=== PATIENT | male | born 2000 | race African-American/Black ===

== ENCOUNTER 2020-09-30 16:25 | Emergency (ER) | payer SELFPAY ==
[2020-09-30] MEDS ORDERED: Acetaminophen/oxyCODONE 325-5 MG Tab PO STA (17:39)
[2020-09-30] MEDS ORDERED: Ketorolac 60 MG/2 ML SDV IM ONE (17:39)
[2020-09-30] MEDS ORDERED: Cyclobenzaprine 10 MG Tab PO ONE (17:39)
--- NOTE | 2020-09-30 18:02 | CR ---
INDICATION: Left knee injury. LEFT KNEE: Three views of the left knee were obtained 09/30/20 and revealed no evidence of an acute fracture or dislocation. Normal bone density is noted. No hypertrophic changes are seen. There is somewhat prominent appearance of the suprapatellar bursa which could represent a small knee joint effusion - correlate clinically. MTDD
--- NOTE | 2020-09-30 18:04 | EDM.PDOC ---
ED HPI GENERAL MEDICAL PROBLEM - General Chief Complaint: Lower Extremity Injury/Pain Stated Complaint: LEG PAIN Time Seen by Provider: 09/30/20 16:30 Source of Information: Reports: Patient History Limitations: Reports: No Limitations - History of Present Illness INITIAL COMMENTS - FREE TEXT/NARRATIVE: Patient presented to the ED because of left knee pain. He was playing football and twisted his left knee. The pain ias worse over the lateral aspect of the left knee and rate it,9/10. L knee Pain Score (Numeric/FACES): 5 - Related Data Allergies Allergy/AdvReac Type Severity Reaction Status Date / Time guaifenesin [From Robitussin] Allergy Cannot Verified 09/30/20 16:30 Remember Home Meds: Home Meds Acetaminophen/HYDROcodone [[place] 325-5 MG] 1 - 2 tab PO Q6H PRN #10 tab 09/30/20 [Rx] Cyclobenzaprine [Flexeril] 10 mg PO TID PRN #30 tab 09/30/20 [Rx] Ibuprofen 800 mg PO TID #30 tablet 09/30/20 [Rx] Multivitamin [Multi-Day Vitamins] 1 each PO DAILY 09/30/20 [History] Past Medical History Respiratory History: Reports: Asthma Musculoskeletal History: Reports: Fracture Other Musculoskeletal History: hx fx R ribs, Neurological History: Reports: Concussion - Past Surgical History Musculoskeletal Surgical History: Reports: None Social & Family History - Family History Family Medical History: Unobtainable - Tobacco Use Tobacco Use Status *Q: Never Tobacco User - Caffeine Use Caffeine Use: Reports: Soda - Recreational Drug Use Recreational Drug Use: No Review of Systems - Review of Systems Review Of Systems: See Below Constitutional: Reports: No Symptoms Eyes: Reports: No Symptoms Ears: Reports: No Symptoms Nose: Reports: No Symptoms Mouth/Throat: Reports: No Symptoms Respiratory: Reports: No Symptoms Cardiovascular: Reports: No Symptoms GI/Abdominal: Reports: No Symptoms Genitourinary: Reports: No Symptoms Musculoskeletal: Reports: Joint Pain, Joint Swelling Skin: Reports: No Symptoms Neurological: Reports: No Symptoms ED EXAM, GENERAL - Physical Exam Exam: See Below Exam Limited By: No Limitations General Appearance: Alert, No Apparent Distress Eye Exam: Bilateral Eye: PERRL Ears: Normal External Exam, Normal Canal Nose: Normal Inspection, Normal Mucosa, No Blood Throat/Mouth: Normal Inspection, Normal Lips Head: Atraumatic, Normocephalic Neck: Normal Inspection, Supple, Non-Tender Respiratory/Chest: No Respiratory Distress, Lungs Clear, Normal Breath Sounds Cardiovascular: Normal Peripheral Pulses, Regular Rate, Rhythm, No Edema, No Gallop GI/Abdominal: Normal Bowel Sounds, Soft, Non-Tender, No Organomegaly Back Exam: Normal Inspection, Full Range of Motion Extremities: Normal Inspection, Limited Range of Motion, Other (tenderness over the medial and lateral aspect of the left knee) Course - Vital Signs Text/Narrative:: Xray-left knee-negative Toradol 60 mg IM x1 Percocet 5/325, 2 po x1 Flexeril 10 mg PO x1 Crutches and knee brace provided in the ED Last Recorded V/S: Last Vital Signs Temp 36.6 C 09/30/20 16:25 Pulse 74 09/30/20 18:27 Resp 16 09/30/20 18:27 BP 128/77 09/30/20 18:27 Pulse Ox 100 09/30/20 18:27 - Orders/Labs/Meds Meds: Medications Discontinued Medications Generic Name Dose Route Start Last Admin Trade Name Freq PRN Reason Stop Dose Admin Cyclobenzaprine HCl 10 mg 09/30/20 17:39 09/30/20 17:47 Flexeril PO 09/30/20 17:40 10 mg ONETIME ONE Administration Ketorolac Tromethamine 60 mg 09/30/20 17:39 09/30/20 17:47 Toradol IM 09/30/20 17:40 60 mg ONETIME ONE Administration Oxycodone/Acetaminophen 2 tab 09/30/20 17:39 09/30/20 17:47 Percocet 325-5 Mg PO 09/30/20 17:40 2 tab NOW STA Administration Departure - Departure Time of Disposition: 18:00 Disposition: Home, Self-Care 01 Condition: Good Clinical Impression: Knee sprain - Discharge Information Prescriptions: Cyclobenzaprine [Flexeril] 10 mg PO TID PRN #30 tab PRN Reason: Spasms Ibuprofen 800 mg PO TID #30 tablet Acetaminophen/HYDROcodone [[place] 325-5 MG] 1 - 2 tab PO Q6H PRN #10 tab PRN Reason: Pain Instructions: Cyclobenzaprine tablets, Acetaminophen; Oxycodone tablets, Ketorolac injection, Knee Sprain, Adult, [id number] Referrals: PCP,None [Primary Care Provider] - Forms: ED Department Discharge Additional Instructions: Please read discharge instructions on knee sprain Take the following medicines all at the same time for better pain relief Ibuprofen 800 mg, tylenol 1000 mg, flexeril 10 mg every 8 hours as needed for pain and spasm Use your crutches until your knee feels better Follow up with your doctor if your knee still hurts after a week of treatment Sepsis Event Note (ED) - Evaluation Sepsis Screening Result: No Definite Risk
== END 2020-09-30 18:45 | disposition home or self-care (01) ==
LOC: FB.ED 16:25
DX: S83.92XA Sprain of unspecified site of left knee, initial encounter (principal); J45.909 Unspecified asthma, uncomplicated; Z88.8 Allergy status to other drugs, medicaments and biological substances; X50.1XXA Overexertion from prolonged static or awkward postures, initial encounter; Y93.61 Activity, american tackle football
CPT/HCPCS: 73562-LT; 96372; 99283; A9270-GY; J1885

== ENCOUNTER 2020-12-11 22:51 | Emergency (ER) | payer SELFPAY ==
[2020-12-11] MEDS ORDERED: Cephalexin 500 MG Cap PO STA (23:02)
--- NOTE | 2020-12-11 23:26 | EDM.PDOC ---
ED HPI GENERAL MEDICAL PROBLEM - General Chief Complaint: General Stated Complaint: LEFT KNEE RED Time Seen by Provider: 12/11/20 23:10 Source of Information: Reports: Patient History Limitations: Reports: No Limitations - History of Present Illness INITIAL COMMENTS - FREE TEXT/NARRATIVE: Patient is a 20 YO BM who presented to the ED because of redness over the medial aspect of the left leg. He is post op left knee surgery due to a torn ACL 1 week ago at [facility]. There is no fever,chills, or any discharge from the wound. He is taking eliquis and hydrocodone . Left Knee Pain Score (Numeric/FACES): 1 - Related Data Allergies Allergy/AdvReac Type Severity Reaction Status Date / Time guaifenesin [From Robitussin] Allergy Cannot Verified 09/30/20 16:30 Remember Home Meds: Home Meds Acetaminophen/HYDROcodone [[place] 325-5 MG] 1 - 2 tab PO Q6H PRN #10 tab 09/30/20 [Rx] Cyclobenzaprine [Flexeril] 10 mg PO TID PRN #30 tab 09/30/20 [Rx] Ibuprofen 800 mg PO TID #30 tablet 09/30/20 [Rx] Multivitamin [Multi-Day Vitamins] 1 each PO DAILY 09/30/20 [History] Sulfamethoxazole/Trimethoprim [Bactrim Ds Tablet] 1 each PO BID #20 tablet 12/11/20 [Rx] cephALEXin [Keflex] 500 mg PO Q8H #30 cap 12/11/20 [Rx] Past Medical History Respiratory History: Reports: Asthma Musculoskeletal History: Reports: Fracture Other Musculoskeletal History: hx fx R ribs, Neurological History: Reports: Concussion - Past Surgical History Musculoskeletal Surgical History: Reports: None, Arthroscopic Knee, Other (See Below) Other Musculoskeletal Surgeries/Procedures:: ACL,PCL,LCL repair on 12/05/20 Social & Family History - Family History Family Medical History: Unobtainable - Tobacco Use Tobacco Use Status *Q: Never Tobacco User - Caffeine Use Caffeine Use: Reports: Soda - Recreational Drug Use Recreational Drug Use: No ED ROS GENERAL - Review of Systems Review Of Systems: See Below Constitutional: Reports: No Symptoms HEENT: Reports: No Symptoms Respiratory: Reports: No Symptoms Cardiovascular: Reports: No Symptoms Endocrine: Reports: No Symptoms GI/Abdominal: Reports: No Symptoms : Reports: No Symptoms Musculoskeletal: Reports: Joint Pain, Joint Swelling Skin: Reports: Erythema Neurological: Reports: No Symptoms ED EXAM, GENERAL - Physical Exam Exam: See Below Exam Limited By: No Limitations General Appearance: Alert, No Apparent Distress Ears: Normal External Exam, Normal Canal Nose: Normal Inspection, Normal Mucosa Throat/Mouth: Normal Inspection Head: Atraumatic, Normocephalic Neck: Normal Inspection, Supple, Non-Tender, Full Range of Motion Respiratory/Chest: No Respiratory Distress, Lungs Clear, Normal Breath Sounds Cardiovascular: Normal Peripheral Pulses, Regular Rate, Rhythm, No Edema, No Gallop, No JVD, No Murmur, No Rub GI/Abdominal: Normal Bowel Sounds, Soft, Non-Tender, No Organomegaly, No Distention, No Abnormal Bruit Back Exam: Normal Inspection, Full Range of Motion Extremities: Normal Inspection, Normal Range of Motion, Non-Tender Neurological: Alert, Oriented, CN II-XII Intact, Normal Cognition, Normal Gait, Normal Reflexes, No Motor/Sensory Deficits Psychiatric: Normal Affect, Normal Mood Skin Exam: Warm, Erythema Course - Vital Signs Text/Narrative:: Lab results was discussed with patient Keflex 500 mg PPO x1 Bactrim DS 1 PO x1 Rocephin 1gm IM Last Recorded V/S: Last Vital Signs Temp 36.7 C 12/11/20 23:08 Pulse 91 12/11/20 23:08 Resp 18 12/11/20 23:08 BP 150/82 H 12/11/20 23:08 Pulse Ox 100 12/11/20 23:08 - Orders/Labs/Meds Labs: Laboratory Tests 12/11/20 12/11/20 12/11/20 Range/Units 23:20 23:20 23:20 WBC 14.3 H (3.2-10.1) x10-3/uL RBC 4.25 (3.90-5.90) x10(6)uL Hgb 12.6 L (12.9-17.7) g/dL Hct 37.6 L (38.3-50.1) % MCV 88.4 (80.8-98.7) fL MCH 29.7 (27.0-33.3) pg MCHC 33.6 (28.7-35.3) g/dL RDW 12.3 L (12.4-15.0) % Plt Count 287 (117-477) x10(3)uL MPV 8.4 (6.7-11.0) fL Neut % (Auto) 74.4 H (40.3-71.8) % Lymph % (Auto) 10.9 L (15.8-45.3) % Bowman % (Auto) 13.9 (5.5-15.2) % Eos % (Auto) 0.3 (0.1-6.8) % Baso % (Auto) 0.5 (0.3-3.8) % Neut # (Auto) 10.7 H (1.7-6.9) x10-3/uL Lymph # (Auto) 1.6 (0.5-4.5) x10-3/uL Bowman # (Auto) 2.0 H (0.0-1.2) x10-3/uL Eos # (Auto) 0.0 (0.0-0.6) x10-3/uL Baso # (Auto) 0.1 (0.0-0.3) x10-3/uL D-Dimer, Quantitative 2.66 H (0.0-0.59) mg/LFEU C-Reactive Protein 15.3 H* (0.5-0.9) mg/dL Meds: Medications Discontinued Medications Generic Name Dose Route Start Last Admin Trade Name Freq PRN Reason Stop Dose Admin Ceftriaxone Sodium 1 gm 12/12/20 00:01 Rocephin IM 12/12/20 00:02 NOW STA Cephalexin 500 mg 12/11/20 23:02 12/11/20 23:22 Keflex PO 12/11/20 23:03 500 mg NOW STA Administration Trimethoprim/Sulfamethoxazole 1 tab 12/12/20 00:12 Septra Ds PO 12/12/20 00:13 NOW STA Departure - Departure Time of Disposition: 00:30 Disposition: Home, Self-Care 01 Condition: Good Clinical Impression: S/P knee surgery, Cellulitis, Elevated d-dimer - Discharge Information Prescriptions: Sulfamethoxazole/Trimethoprim [Bactrim Ds Tablet] 1 each PO BID #20 tablet cephALEXin [Keflex] 500 mg PO Q8H #30 cap Instructions: Anterior Cruciate Ligament Reconstruction, Care After, Cellulitis, Adult, [id number] Referrals: PCP,None [Primary Care Provider] - Forms: ED Department Discharge Additional Instructions: Please read discharge instructions on knee surgery and cellulitis Continue your pain medications as prescribed Keflex 500 mg 3 times daily for 10 days Bactrim DS 1 PO x 1 We will call you for your lower extremity ultrasound appointment Follow up with your orthopedic doctor as scheduled Sepsis Event Note (ED) - Evaluation Sepsis Screening Result: No Definite Risk - Focused Exam Vital Signs: Vital Signs Temp Pulse Resp BP Pulse Ox 12/11/20 23:08 36.7 C 91 18 150/82 H 100
[2020-12-12] MEDS ORDERED: cefTRIAXone 1 GM Vial IM STA (00:01)
[2020-12-12] MEDS ORDERED: Sulfamethoxazole/Trimethoprim 800-160 MG Tab PO STA (00:12)
== END 2020-12-12 00:47 | disposition home or self-care (01) ==
LOC: FB.ED 22:51
DX: L03.116 Cellulitis of left lower limb (principal); R79.1 Abnormal coagulation profile; J45.909 Unspecified asthma, uncomplicated; Z98.890 Other specified postprocedural states; Z88.8 Allergy status to other drugs, medicaments and biological substances; Z79.899 Other long term (current) drug therapy; Z79.01 Long term (current) use of anticoagulants
CPT/HCPCS: 36415; 85025; 85379; 86140; 96372; 99283; A9270-GY; J0696

== ENCOUNTER 2021-07-17 00:19 | Emergency (ER) | payer MEDICAID ==
[2021-07-17] MEDS ORDERED: Sulfamethoxazole/Trimethoprim 800-160 MG Tab PO STA (00:47)
--- NOTE | 2021-07-17 00:53 | EDM.PDOC ---
ED HPI GENERAL MEDICAL PROBLEM - General Chief Complaint: Genitourinary Problem Stated Complaint: UTI CONCERN Time Seen by Provider: 07/17/21 00:30 Source of Information: Reports: Patient History Limitations: Reports: No Limitations - History of Present Illness INITIAL COMMENTS - FREE TEXT/NARRATIVE: Patient presented to the ED because of dysuria and frequency for 2 days. There is no fever, flank pain, N/V. He took OTC azol and is concerned abou the orange color of his urine. - Related Data Allergies Allergy/AdvReac Type Severity Reaction Status Date / Time guaifenesin [From Robitussin] Allergy Cannot Verified 07/17/21 00:32 Remember Home Meds: Home Meds Sulfamethoxazole/Trimethoprim [Bactrim Ds Tablet] 1 each PO BID #14 tablet 07/17/21 [Rx] Past Medical History Respiratory History: Reports: Asthma Musculoskeletal History: Reports: Fracture Other Musculoskeletal History: hx fx R ribs, Neurological History: Reports: Concussion - Past Surgical History Musculoskeletal Surgical History: Reports: None, Arthroscopic Knee, Other (See Below) Other Musculoskeletal Surgeries/Procedures:: ACL,PCL,LCL repair on 12/05/20 Social & Family History - Family History Family Medical History: Unobtainable - Caffeine Use Caffeine Use: Reports: Soda ED ROS GENERAL - Review of Systems Review Of Systems: See Below Constitutional: Reports: No Symptoms HEENT: Reports: No Symptoms Respiratory: Reports: No Symptoms Cardiovascular: Reports: No Symptoms Endocrine: Reports: No Symptoms GI/Abdominal: Reports: No Symptoms : Reports: Dysuria Musculoskeletal: Reports: No Symptoms Skin: Reports: No Symptoms Neurological: Reports: No Symptoms ED EXAM, RENAL/ - Physical Exam Exam: See Below Exam Limited By: No Limitations General Appearance: Alert, No Apparent Distress Eye Exam: Bilateral Eye: PERRL Ears: Normal External Exam, Normal Canal Nose: Normal Inspection, Normal Mucosa, No Blood Throat/Mouth: Normal Inspection, Normal Lips, Normal Teeth, Normal Gums Head: Atraumatic, Normocephalic Neck: Normal Inspection, Supple, Non-Tender, Full Range of Motion Respiratory/Chest: No Respiratory Distress, Lungs Clear, Normal Breath Sounds, No Accessory Muscle Use, Chest Non-Tender Cardiovascular: Normal Peripheral Pulses, Regular Rate, Rhythm, No Edema, No Gallop, No JVD, No Murmur, No Rub GI/Abdominal: Normal Bowel Sounds, Soft, Non-Tender, No Organomegaly, No Distention, No Abnormal Bruit, No Mass Back Exam: Normal Inspection, Full Range of Motion Extremities: Normal Inspection, Normal Range of Motion, Non-Tender, No Pedal Edema, Normal Capillary Refill Neurological: Alert, Oriented, CN II-XII Intact, Normal Cognition Course - Vital Signs Text/Narrative:: UA-see result UC-pending Bactrim DS 1 PO x1 dose - Orders/Labs/Meds Orders: Active Orders 24 hr Category Date Time Status CULTURE URINE [RM] Stat Lab 07/17/21 00:25 Received Labs: Laboratory Tests 07/17/21 Range/Units 00:25 Urine Color Yellow (YELLOW) Urine Appearance Cloudy (CLEAR) Urine pH 7.0 H (5.0-6.5) Ur Specific [place] 1.010 (1.010-1.025) Urine Protein 500 H (NEGATIVE) mg/dL Urine Glucose (UA) Normal (NORMAL) mg/dL Urine Ketones 15 H (NEGATIVE) mg/dL Urine Occult Blood Moderate H (NEGATIVE) Urine Nitrite Positive H (NEGATIVE) Urine Bilirubin Moderate H (NEGATIVE) Urine Urobilinogen >=12 H (NEGATIVE) mg/dL Ur Leukocyte Esterase Large H (NEGATIVE) Urine RBC 10-20 H (0-5) Urine WBC >100 H (0-5) Ur Squamous Epith Cells Occasional (NS,R,O) Urine Bacteria Moderate H (NS) Meds: Medications Discontinued Medications Generic Name Dose Route Start Last Admin Trade Name Cjq PRN Reason Stop Dose Admin Trimethoprim/Sulfamethoxazole 1 tab 07/17/21 00:47 07/17/21 00:55 Sulfamethoxazole/Trimethoprim 800-160 Mg Tab PO 07/17/21 00:48 1 tab NOW STA Administration Departure - Departure Time of Disposition: 01:00 Disposition: Home, Self-Care 01 Condition: Good Clinical Impression: UTI (urinary tract infection) - Discharge Information Prescriptions: Sulfamethoxazole/Trimethoprim [Bactrim Ds Tablet] 1 each PO BID #14 tablet Instructions: Urinary Tract Infection, Adult, [id number] Referrals: PCP,None [Primary Care Provider] - Forms: ED Department Discharge Additional Instructions: Please read discharge instructions on UTI Drink 2 liters of water daily Bactrim DS twice daily for 7 days Follow up as needed - My Orders Last 24 Hours: My Active Orders 07/17/21 00:25 CULTURE URINE [RM] Stat - Assessment/Plan Last 24 Hours: My Active Orders 07/17/21 00:25 CULTURE URINE [RM] Stat
== END 2021-07-17 01:05 | disposition home or self-care (01) ==
LOC: FB.ED 00:19
DX: N39.0 Urinary tract infection, site not specified (principal); Z88.8 Allergy status to other drugs, medicaments and biological substances
CPT/HCPCS: 81001; 87086; 99283; A9270

== ENCOUNTER 2021-08-05 22:15 | Emergency (ER) | payer MEDICAID, OTHER ==
[2021-08-05] MEDS ORDERED: Doxycycline 100 MG Tab PO ONE (22:16)
[2021-08-05] MEDS ORDERED: cefTRIAXone 500 MG Vial IM ONE (22:48)
--- NOTE | 2021-08-05 22:51 | EDM.PDOC ---
ED HPI GENERAL MEDICAL PROBLEM - General Chief Complaint: Genitourinary Problem Stated Complaint: UTI Time Seen by Provider: 08/05/21 22:49 Source of Information: Reports: Patient History Limitations: Reports: No Limitations - History of Present Illness INITIAL COMMENTS - FREE TEXT/NARRATIVE: Complains of urethral discharge when he pees. He was here last month and treated for UTi with Bactrim,but urine culture was negative - Related Data Allergies Allergy/AdvReac Type Severity Reaction Status Date / Time guaifenesin [From Robitussin] Allergy Cannot Verified 08/05/21 22:30 Remember Home Meds: Home Meds NK [No Known Home Meds] 08/05/21 [History] Past Medical History Respiratory History: Reports: Asthma Genitourinary History: Reports: UTI, Recurrent Musculoskeletal History: Reports: Fracture Other Musculoskeletal History: hx fx R ribs, Neurological History: Reports: Concussion - Past Surgical History Musculoskeletal Surgical History: Reports: None, Arthroscopic Knee, Other (See Below) Other Musculoskeletal Surgeries/Procedures:: ACL,PCL,LCL repair on 12/05/20 Social & Family History - Family History Family Medical History: Unobtainable - Tobacco Use Tobacco Use Status *Q: Current Every Day Tobacco User Years of Tobacco use: 5 Packs/Tins Daily: 0 - Caffeine Use Caffeine Use: Reports: None - Recreational Drug Use Recreational Drug Use: Yes Recreational Drug Type: Reports: Marijuana/Hashish Recreational Drug Use Frequency: Socially ED ROS GENERAL - Review of Systems Review Of Systems: Comprehensive ROS is negative, except as noted in HPI. ED EXAM, RENAL/ - Physical Exam Exam: See Below Exam Limited By: No Limitations General Appearance: Alert, WD/WN Course - Vital Signs Last Recorded V/S: Last Vital Signs Temp 99 F 08/05/21 22:20 Pulse 73 08/05/21 22:20 Resp 20 08/05/21 22:20 BP 157/81 H 08/05/21 22:20 Pulse Ox 97 08/05/21 22:20 - Orders/Labs/Meds Orders: Active Orders 24 hr Category Date Time Status CHLAMYDIA/GC AMPLIFICATION Stat Lab 08/05/21 22:46 Ordered CULTURE URINE [RM] Stat Lab 08/05/21 22:43 Ordered cefTRIAXone [Rocephin] Med 08/05/21 22:48 Once 500 mg IM ONETIME ONE Medication Orders Ceftriaxone Sodium (Ceftriaxone 500 Mg Vial) 500 mg IM ONETIME ONE Stop: 08/05/21 22:49 Labs: Laboratory Tests 08/05/21 Range/Units 22:35 Urine Color Yellow (YELLOW) Urine Appearance Slightly cloudy (CLEAR) Urine pH 7.0 H (5.0-6.5) Ur Specific [place] 1.015 (1.010-1.025) Urine Protein Trace (NEGATIVE) mg/dL Urine Glucose (UA) Normal (NORMAL) mg/dL Urine Ketones 15 H (NEGATIVE) mg/dL Urine Occult Blood Moderate H (NEGATIVE) Urine Nitrite Negative (NEGATIVE) Urine Bilirubin Negative (NEGATIVE) Urine Urobilinogen Normal (NEGATIVE) mg/dL Ur Leukocyte Esterase Large H (NEGATIVE) Urine RBC 5-10 H (0-5) Urine WBC >100 H (0-5) Ur Squamous Epith Cells Few H (NS,R,O) Urine Bacteria Many H (NS) Urine Mucus Moderate H (NS) Meds: Medications Generic Name Dose Route Start Last Admin Trade Name Freq PRN Reason Stop Dose Admin Ceftriaxone Sodium 500 mg 08/05/21 22:48 Ceftriaxone 500 Mg Vial IM 08/05/21 22:49 ONETIME ONE Departure - Departure Time of Disposition: 22:50 Disposition: Home, Self-Care 01 Clinical Impression: Urethritis - Discharge Information Referrals: PCP,None [Primary Care Provider] - Sepsis Event Note (ED) - Evaluation Sepsis Screening Result: No Definite Risk - Focused Exam Vital Signs: Vital Signs Temp Pulse Resp BP Pulse Ox 08/05/21 22:20 99 F 73 20 157/81 H 97 - Problem List & Annotations (1) Urethritis SNOMED Code(s): 81940539 Code(s): N34.2 - OTHER URETHRITIS Status: Acute Current Visit: Yes - Problem List Review Problem List Initiated/Reviewed/Updated: Yes - My Orders Last 24 Hours: My Active Orders 08/05/21 22:43 CULTURE URINE [RM] Stat 08/05/21 22:46 CHLAMYDIA/GC AMPLIFICATION Stat 08/05/21 22:48 cefTRIAXone [Rocephin] 500 mg IM ONETIME ONE - Assessment/Plan Last 24 Hours: My Active Orders 08/05/21 22:43 CULTURE URINE [RM] Stat 08/05/21 22:46 CHLAMYDIA/GC AMPLIFICATION Stat 08/05/21 22:48 cefTRIAXone [Rocephin] 500 mg IM ONETIME ONE Plan: Rocephin 500 mg IM. And Doxy 100 mg BID. Sent urine for GC/Chlamydia
[2021-08-08 11:09] LABS: CHLAMYDIA TRACHOMATIS, NAA Negative (Negative); NEISSERIA GONORRHOEAE, NAA Positive (Negative)
== END 2021-08-05 23:05 | disposition home or self-care (01) ==
LOC: FB.ED 22:15
DX: N34.2 Other urethritis (principal); Z88.8 Allergy status to other drugs, medicaments and biological substances; Z72.0 Tobacco use
CPT/HCPCS: 81001; 87086; 87491; 87591; 96372; 99283; A9270; J0696